=== PATIENT | male | born 2000 | race Caucasian/White ===

== ENCOUNTER 2024-01-03 21:24 | Emergency (ER) | payer OTHER ==
[~2024-01-03] VITALS: Ht 188 cm; Wt 93.6 kg
[2024-01-03 21:30] VITALS: BP 173/96; PULSE 67; TEMP 97.9
== END 2024-01-03 22:32 | disposition left against medical advice (07) ==
LOC: COL.ER 21:24
DX: R07.9 Chest pain, unspecified (principal); M54.9 Dorsalgia, unspecified; R06.02 Shortness of breath; Z53.21 Procedure and treatment not carried out due to patient leaving prior to being seen by health care provider